=== PATIENT | female | born 1995 | race Caucasian/White ===

== ENCOUNTER 2016-03-16 14:13 | Emergency (ER) | payer MEDICAID, OTHER ==
[~2016-03-16] VITALS: Ht 167.6 cm; Wt 60.0 kg
[~2016-03-16 14:13] MED LIST: ALBU8I INH; PREN0.01 PO
[2016-03-16 14:15] VITALS: BP 119/73; PULSE 112; RESP 20; TEMP 99.1; O2SAT 97
--- NOTE | 2016-03-16 14:56 | PD ---
Physical Exam Time Seen by Provider: 14:54 Narrative 20 year old female presents to the ED for evaluation of diarrhea for one week. No jose j red or black tarry stools. Cough and chest congestions. Nausea and vomiting this morning. Fever with tmax 105. Pt has pneumonia in past and feels this is similar. Mirena in place. LMP early january. Data Data Last Documented VS Vital Signs Date Time Temp Pulse Resp B/P Pulse Ox O2 Delivery O2 Flow Rate FiO2 03/16/16 17:57 89 16 115/78 97 Room Air 03/16/16 14:15 99.1 Orders Influenzae A/B Antigen (03/16/16 14:57) Complete Blood Count With Diff (03/16/16 14:57) Comprehensive Metabolic Panel (03/16/16 14:57) Chest, Single Ap (03/16/16 ) Urinalysis - C+S If Indicated (03/16/16 14:57) Labs Laboratory Tests Test 03/16/16 17:00 White Blood Count 7.6 TH/MM3 Red Blood Count 5.06 MIL/MM3 Hemoglobin 15.4 GM/DL Hematocrit 45.4 % Mean Corpuscular Volume 89.6 FL Mean Corpuscular Hemoglobin 30.4 PG Mean Corpuscular Hemoglobin 34.0 % Concent Red Cell Distribution Width 14.0 % Platelet Count 204 TH/MM3 Mean Platelet Volume 8.9 FL Neutrophils (%) (Auto) 60.6 % Lymphocytes (%) (Auto) 20.4 % Monocytes (%) (Auto) 18.4 % Eosinophils (%) (Auto) 0.2 % Basophils (%) (Auto) 0.4 % Neutrophils # (Auto) 4.6 TH/MM3 Lymphocytes # (Auto) 1.5 TH/MM3 Monocytes # (Auto) 1.4 TH/MM3 Eosinophils # (Auto) 0.0 TH/MM3 Basophils # (Auto) 0.0 TH/MM3 CBC Comment DIFF FINAL Differential Comment Urine Color YELLOW Urine Turbidity HAZY Urine pH 5.5 Urine Specific [place] 1.033 Urine Protein 30 mg/dL Urine Glucose (UA) NEG mg/dL Urine Ketones 40 mg/dL Urine Occult Blood SMALL Urine Nitrite NEG Urine Bilirubin SMALL Urine Urobilinogen LESS THAN 2.0 MG/DL Urine Leukocyte Esterase NEG Urine RBC 1 /hpf Urine WBC 2 /hpf Urine Squamous Epithelial 2 /hpf Cells Urine Bacteria RARE /hpf Urine Hyaline Casts 3 /lpf Urine Mucus MANY /lpf Microscopic Urinalysis Comment CULT NOT INDICATED Sodium Level 134 MEQ/L Potassium Level 3.6 MEQ/L Chloride Level 101 MEQ/L Carbon Dioxide Level 21.4 MEQ/L Anion Gap 12 MEQ/L Blood Urea Nitrogen 12 MG/DL Creatinine 0.77 MG/DL Estimat Glomerular Filtration 96 ML/MIN Rate Random Glucose 71 MG/DL Calcium Level 9.1 MG/DL Total Bilirubin 0.6 MG/DL Aspartate Amino Transf 12 U/L (AST/SGOT) Alanine Aminotransferase 15 U/L (ALT/SGPT) Alkaline Phosphatase 102 U/L Total Protein 8.8 GM/DL Albumin 4.5 GM/DL [facility] Medical Record Reviewed: Yes Supervised Visit with [facility]: No Narrative Course Work up initiated in triage. Scripts Oseltamivir (Tamiflu)75 Mg Cap75 Mg PO BID 5 Days Ref 0 Prov:Wilton Breen MD 03/16/16 Condition: Stable Marylu Brwester Mar 16, 2016 14:56
--- NOTE | 2016-03-16 15:30 | RADRPT ---
EXAM DATE/TIME: 03/16/2016 15:11 [place] COMPARISON: No previous studies available for comparison. INDICATIONS : Cough, chest pain, and shortness of breath. MEDICAL HISTORY : None. SURGICAL HISTORY : None. ENCOUNTER: Initial ACUITY: 1 day PAIN SCORE: 5/10 LOCATION: chest FINDINGS: A single view of the chest demonstrates the lungs to be symmetrically aerated without evidence of mas s, infiltrate or effusion. The cardiomediastinal contours are unremarkable. Osseous structures are intact. CONCLUSION: Normal examination. Abbey Ferris MD on March 16, 2016 at 15:28 Board Certified Radiologist. This report was verified electronically.
--- NOTE | 2016-03-16 17:12 | PD ---
HPI Chief Complaint: Cold / Flu Symptoms Time Seen by Provider: 17:05 Travel History International Travel<30 days: No Contact w/Intl Traveler<30days: No Traveled to known affect area: No History of Present Illness HPI 20-year-old female presents to the emergency room for evaluation of fever, chills, nausea, vomiting, diarrhea, body aches, left-sided back pain, sore throat, cough, and congestion for the past 2 days. Started off with a sore throat that has since gone away and all the other symptoms develop shortly afterward. TMAX was 105 at home and lasted about 20 minutes. She has been taking TheraFlu with moderately than symptoms. Patient states symptoms started all at once. She denies dysuria, urgency, frequency, abdominal pain. Patient smokes cigarettes. Denies chronic medical conditions or daily medications. PFSH Past Medical History ?: Not LMP: 01/2016 ([facility]) Social History Alcohol Use: No Tobacco Use: Yes Substance Use: No Allergies-Medications (Allergen,Severity, Reaction): Uncoded Allergies: ABX ENDING IN "MYCIN" (Allergy, Mild, Hives, 04/22/15) Reported Meds & Prescriptions Reported Meds & Active Scripts Active Review of Systems Except as stated in HPI: all other systems reviewed are Neg Physical Exam Narrative GENERAL: Well-nourished, well-developed female in no acute distress. Afebrile. Ambulatory. SKIN: Warm and dry. HEAD: Normocephalic. EYES: No scleral icterus. No injection or drainage. ENT: Mucosa pink and moist. No erythema or exudates. No uvular edema. No uvular , palatal, or tonsillar deviation. Airway patent. Nasal turbinates appear normal without nasal blood, purulent drainage or septal hematoma. NECK: Supple, trachea midline. No JVD or lymphadenopathy. CARDIOVASCULAR: Regular rate and rhythm without murmurs, gallops, or rubs. RESPIRATORY: Breath sounds equal bilaterally. No accessory muscle use. No crackles, rales, wheezes, or rhonchi. GASTROINTESTINAL: Abdomen soft, non-tender, nondistended. BACK: No deformity. No CVA tenderness. Mild tenderness to palpation left lateral thoracic area. Data Data Last Documented VS Vital Signs Date Time Temp Pulse Resp B/P Pulse Ox O2 Delivery O2 Flow Rate FiO2 03/16/16 17:57 89 16 115/78 97 Room Air 03/16/16 14:15 99.1 Orders Influenzae A/B Antigen (03/16/16 14:57) Complete Blood Count With Diff (03/16/16 14:57) Comprehensive Metabolic Panel (03/16/16 14:57) Chest, Single Ap (03/16/16 ) Urinalysis - C+S If Indicated (03/16/16 14:57) Labs Laboratory Tests Test 03/16/16 17:00 White Blood Count 7.6 TH/MM3 Red Blood Count 5.06 MIL/MM3 Hemoglobin 15.4 GM/DL Hematocrit 45.4 % Mean Corpuscular Volume 89.6 FL Mean Corpuscular Hemoglobin 30.4 PG Mean Corpuscular Hemoglobin 34.0 % Concent Red Cell Distribution Width 14.0 % Platelet Count 204 TH/MM3 Mean Platelet Volume 8.9 FL Neutrophils (%) (Auto) 60.6 % Lymphocytes (%) (Auto) 20.4 % Monocytes (%) (Auto) 18.4 % Eosinophils (%) (Auto) 0.2 % Basophils (%) (Auto) 0.4 % Neutrophils # (Auto) 4.6 TH/MM3 Lymphocytes # (Auto) 1.5 TH/MM3 Monocytes # (Auto) 1.4 TH/MM3 Eosinophils # (Auto) 0.0 TH/MM3 Basophils # (Auto) 0.0 TH/MM3 CBC Comment DIFF FINAL Differential Comment Urine Color YELLOW Urine Turbidity HAZY Urine pH 5.5 Urine Specific [place] 1.033 Urine Protein 30 mg/dL Urine Glucose (UA) NEG mg/dL Urine Ketones 40 mg/dL Urine Occult Blood SMALL Urine Nitrite NEG Urine Bilirubin SMALL Urine Urobilinogen LESS THAN 2.0 MG/DL Urine Leukocyte Esterase NEG Urine RBC 1 /hpf Urine WBC 2 /hpf Urine Squamous Epithelial 2 /hpf Cells Urine Bacteria RARE /hpf Urine Hyaline Casts 3 /lpf Urine Mucus MANY /lpf Microscopic Urinalysis Comment CULT NOT INDICATED Sodium Level 134 MEQ/L Potassium Level 3.6 MEQ/L Chloride Level 101 MEQ/L Carbon Dioxide Level 21.4 MEQ/L Anion Gap 12 MEQ/L Blood Urea Nitrogen 12 MG/DL Creatinine 0.77 MG/DL Estimat Glomerular Filtration 96 ML/MIN Rate Random Glucose 71 MG/DL Calcium Level 9.1 MG/DL Total Bilirubin 0.6 MG/DL Aspartate Amino Transf 12 U/L (AST/SGOT) Alanine Aminotransferase 15 U/L (ALT/SGPT) Alkaline Phosphatase 102 U/L Total Protein 8.8 GM/DL Albumin 4.5 GM/DL MDM Medical Decision Making Medical Screen Exam Complete: Yes Emergency Medical Condition: Yes Medical Record Reviewed: Yes Differential Diagnosis Influenza versus gastroenteritis versus viral syndrome versus UTI Narrative Course 20-year-old female presents to the emergency room for evaluation of cold and flu symptoms for the past 2 days. Patient is afebrile and well-appearing in the emergency room. Resting comfortably in bed. Physical exam is reassuring. Lungs sounds clear and equal bilaterally. Pharynx without erythema or exudates. Chest x-ray is negative. Rapid influenza is positive. CBC and CMP are unremarkable. UA shows little evidence of current infection. Patient discharged with prescription for Tamiflu and told to follow up with a primary care physician and return to the emergency room for worsening symptoms. She understands and agrees to plan. Diagnosis Primary Impression: Influenza A Referrals: Primary Care Physician Patient Instructions: General Instructions, Influenza (ED) Additional Instructions: Rest and drink plenty of fluids. Take Tamiflu as directed, until gone. Take ibuprofen with food as directed, as needed for pain and fever. Follow-up with a primary care physician. Return to the emergency room for worsening symptoms. Scripts Oseltamivir (Tamiflu)75 Mg Cap75 Mg PO BID 5 Days Ref 0 Prov:Wilotn Breen MD 03/16/16 Disposition: 01 DISCHARGE HOME Condition: Stable Pia Mendoza Mar 16, 2016 17:12
[2016-03-16 17:57] VITALS: BP 115/78; PULSE 89; RESP 16; O2SAT 97
[2016-03-16 17:59] LABS: AUTOMATED NEUTROPHIL # 4.6 TH/MM3 (1.8-7.7); BASOPHIL % 0.4 % (0.0-2.0); EOSINOPHIL % 0.2 % (0.0-4.0); HEMATOCRIT 45.4 % (35.0-46.0); HEMO FLAGS DIFF FINAL; LYMPH % 20.4 % (9.0-44.0); LYMPHOCYTE # 1.5 TH/MM3 (1.0-4.8); MEAN CELL VOLUME 89.6 FL (80.0-100.0); MEAN CORPUSCULAR HEMOGLOBIN 30.4 PG (27.0-34.0); MONO % 18.4 % (0.0-8.0); NEUT % 60.6 % (16.0-70.0); PLATELET COUNT 204 TH/MM3 (150-450); RED BLOOD COUNT 5.06 MIL/MM3 (4.00-5.30); WHITE BLOOD COUNT 7.6 TH/MM3 (4.0-11.0)
[2016-03-16 18:04] LABS: BACTERIA, URINE RARE /hpf; BLOOD, URINE SMALL (NEG); COMMENT (UR) CULT NOT INDICATED; CULTURE IF INDICATED CULT NOT INDICATED; GLUCOSE,URINE NEG (NEG); HYALINE CAST, URINE 3 /lpf (RARE); KETONE, URINE 40 mg/dL (NEG); MUCUS URINE MANY /lpf (OCC); NITRITE,URINE NEG (NEG); PH, URINE 5.5 (5.0-8.5); SQUAMOUS EPITHELIAL CELL URINE 2 /hpf (0-5); URINE COLOR YELLOW (YELLW/STRAW)
[2016-03-16 18:23] LABS: ANION GAP 12 MEQ/L (5-15); AST (GOT) 12 U/L (16-38); BICARBONATE 21.4 MEQ/L (21.0-32.0); BLOOD UREA NITROGEN 12 MG/DL (7-18); CHLORIDE 101 MEQ/L (98-107); GLOMERULAR FILTRATION RATE 96 ML/MIN (>89); POTASSIUM 3.6 MEQ/L (3.5-5.1); SODIUM (NA) 134 MEQ/L (136-145)
[2016-03-16 18:27] LABS: ALKALINE PHOSPHATASE 102 U/L (45-117); ALT (GPT) 15 U/L (9-42); TOTAL BILIRUBIN ADULT 0.6 MG/DL (0.2-1.0)
[2016-03-16] MEDS ORDERED: OSEL75 PO (18:32)
== END 2016-03-16 18:57 | disposition home or self-care (01) ==
LOC: NEPB 14:13
DX: J09.X2 Influenza due to identified novel influenza A virus with other respiratory manifestations (principal); R50.9 Fever, unspecified; Z72.0 Tobacco use
CPT/HCPCS: 71010; 80053; 81001; 85025; 87804; 99284